=== PATIENT | female | born 1965 | race Caucasian/White ===

== ENCOUNTER 2021-10-08 11:05 | Inpatient (IN) | payer OTHER, SELFPAY ==
[2021-10-08] VITALS (9 sets, daily range): BP systolic 151–200; BP diastolic 70–85; PULSE 71–83; RESP 16–18; TEMP 36.1–36.7; O2SAT 97–100; BMI 30.4
--- NOTE | ~2021-10-08 | US_ITS ---
EXAMINATION: US carotid duplex BI DATE: 10/08/2021 17:33 INDICATION: Right hemiparesis. TECHNIQUE: Grayscale, color Doppler, and pulsed Doppler images of the cervical carotid arteries were obtained. The degree of vessel stenosis is placed in one of the following categories: normal, <50%, 5 0-69%, >=70% but less than near-occlusion, near-occlusion, or total occlusion. Note that percent sten osis relative to normal distal artery lumen diameter is indirectly measured from velocity measurement s as described by Vladimir, et al. Radiology 2003; 229:340-346. COMPARISON: CTA 10/08/2021 FINDINGS: RIGHT: The right common carotid artery (CCA) peak systolic velocity (PSV) is 73 cm/s. The right internal car otid artery (ICA) PSV is 143 cm/s. The right ICA end-diastolic velocity (EDV) is 45 cm/s. The right I CA/CCA PSV ratio is 2.0. Grayscale and color Doppler images yield an estimate of <50% diameter reduct ion from plaque in the ICA. There is antegrade flow in the right vertebral artery. LEFT: The left CCA PSV is 113 cm/s. The left ICA PSV is 108 cm/s. The left ICA EDV is 21 cm/s. The left ICA /CCA PSV ratio is 1.0. Grayscale and color Doppler images yield an estimate of <50% diameter reductio n from plaque in the ICA. There is antegrade flow in the left vertebral artery. IMPRESSION: 1. <50% stenosis in the right internal carotid artery. 2. <50% stenosis in the left internal carotid artery. Reviewed, dictated and finalized at location A. MANAGER
--- NOTE | ~2021-10-08 | MR_ITS ---
EXAMINATION: MR brain/brain stem wo/w con EXAM DATE: 10/09/2021 15:23 INDICATION: R sided weakness. TECHNIQUE: Magnetic resonance imaging (MRI) of the brain/brain stem obtained without contrast. Sagit gigi T1, axial diffusion, gradient echo (T2*), T1, T2, FLAIR sequences obtained. Patient was then inj ected with 18 cc intravenous Multihance contrast. Axial and coronal postcontrast T1 weighted sequence s obtained. Correlation is made to CTA brain carotid from yesterday. FINDINGS: There is small left thalamic acute lacunar infarction. There is mild microangiopathy. There is no acute hemorrhage seen on the T2*, a hemosiderin sensitive sequence. No intraparenchymal brain mass. The ventricles are normal in size. There are no extra-axial collections. Flow voids are seen in the cerebral arteries on the T2-weighted sequences consistent with their expected patency. The o rbits are unremarkable. Soft tissue is unremarkable. There are no areas of abnormal enhancement on the postcontrast images. IMPRESSION: Acute left thalamic lacunar infarction. Mild microangiopathy. Reviewed, dictated and finalized at location B. CUTTER
--- NOTE | ~2021-10-08 | CT_ITS ---
EXAMINATION: CTA brain carotid EXAM DATE: 10/08/2021 11:56 INDICATION: R sided hemiparesis and paresthesia yesterday morning TECHNIQUE: Noncontrast head CT. Spiral CTA of the carotid arteries was performed with intravenous i njection 100 cc of Omnipaque 350. Axial, coronal, sagittal reformatted images reviewed. Additional r eformatted images created on dedicated 3-D workstation. NASCET comparable standard used to assess th e degree of arterial stenosis. Spiral CT angiogram cerebral arteries performed with the same intrave nous injection of contrast. Source images of the brain CTA transferred to dedicated workstation for 3 -D rotational image creation. Coronal, sagittal maximum intensity pixel images also reviewed. The d ose-length product (DLP) for this examination was 1830.27 mGy-cm. The exposure was tailored accordi ng to patient size, and iterative reconstruction (ASIR) was used as additional dose reduction techniq ue. There is no prior study for comparison. FINDINGS: There is mild to moderate right carotid, mild left carotid bulb atherosclerosis with 40% st enosis of the right carotid bulb, 0% stenosis on the left. Vertebral arteries are codominant. There i s no carotid or vertebral basilar arterial dissection or fibromuscular dysplasia. There are no cerebr al artery aneurysms. There is symmetric cerebral artery arborization. The sagittal, transverse and si gmoid sinuses enhance normally, no venous sinus thrombosis. Internal cerebral veins also enhance norm ally. There is no acute intraparenchymal hemorrhage. No evidence of intraparenchymal brain mass lesion. N o evidence of acute infarction. There is mild periventricular and subcortical hypodensity, nonspecifi c but probably related to small vessel ischemic disease. There is no mass effect or midline shift. There is no obstructive hydrocephalus suspected. There are no extra-axial collections. There is 8mm calcification overlying right frontal lobe, most likely small calcified meningioma requiring no furt her follow-up. Incidental Findings: Mild to moderate cervical spondylosis. IMPRESSION: 1. No acute carotid or intracranial findings. 2. Right carotid bulb 40% stenosis, left carotid bulb 0% stenosis. 3. Mild microangiopathy. Reviewed, dictated and finalized at location B. REACTIVATOR OPERATOR
--- NOTE | ~2021-10-08 | XR_ITS ---
XR chest 1V portable DATE: 10/08/2021 11:39 INDICATION: Right sided weakness TECHNIQUE: Portable upright AP chest on 10/08/2021 at 1131 hours COMPARISON: 12/17/2018 MRI chest 10/15/2018 PA chest and left RIBS FINDINGS: Normal heart size. No hilar or mediastinal enlargement. The lungs are normally inflated and clear of infiltrate or consolidation. No pleural effusion or pulmonary vascular congestion or pneumo thorax. Included skeletal structures are unremarkable. Status post cholecystectomy IMPRESSION: No active cardiopulmonary disease Reviewed, dictated and finalized at location A. CTURAL BIOLOGIST
--- NOTE | ~2021-10-08 | CT_ITS ---
EXAMINATION: CTA brain carotid, CT brain wo con DATE: 10/09/2021 17:54 (accession [id number]), 10/09/2021 17:53 (accession [id number]) INDICATION: Stroke symptoms, acute left thalamic lacunar infarct on MRI from today TECHNIQUE: Computed tomographic angiography (CTA) of the head was performed without and with 100 mL O mnipaque-350 intravenous contrast. CTA of the neck was performed with intravenous contrast. The dose- length product was 1154.20 (accession [id number]), 681.00 (accession [id number]) mGy-cm. Maxi mum intensity projection and volume rendered 3D-reconstructions were created by the technologist on a separate workstation. Automated exposure control and iterative reconstruction technique were employe d. COMPARISON: MRI from today and CTA brain carotid from yesterday FINDINGS: HEAD CTA: There is no acute intraparenchymal hemorrhage. No evidence of mass lesion. No evidence of a cute infarction. The left thalamic infarct demonstrated on today's MRI is not yet evident on CT. Ther e is mild periventricular and subcortical hypodensity probably related to small vessel ischemic disea se. There is mild prominence of the sulci and ventricles related to cerebral atrophy. Intracranial ca lcified cerebral atherosclerosis is noted. There are no extra-axial collections. There is no mass eff ect or midline shift. The orbits and soft tissues are unremarkable. The visualized sinuses and mastoi d air cells are well aerated. There is no significant stenosis of the basilar artery or posterior cerebral arteries. There is no si gnificant stenosis of the intracranial internal carotid arteries or the anterior or middle cerebral a rteries. The anterior communicating artery and posterior communicating arteries are normal. There is no aneurysm. NECK CTA: The thyroid gland is unremarkable. The submandibular and parotid glands are symmetric. Ther e is no lymphadenopathy. There are no masses identified. The airway is unremarkable. There is mild ce rvical spondylosis.. The superior mediastinum is unremarkable. There is 40% stenosis of the proximal right internal carotid artery relative to normal distal artery lumen diameter (NASCET criteria). There is 0% stenosis of the proximal left internal carotid artery r elative to normal distal artery lumen diameter. IMPRESSION: 1. No acute intracranial abnormality. Known small left thalamic infarct not yet evident on CT. Normal head CTA. 2. 40% stenosis of the proximal right internal carotid artery relative to normal distal artery lumen diameter (NASCET criteria). 3. 0% stenosis of the proximal left internal carotid artery relative to normal distal artery lumen di ameter. As per stroke protocol, I called these results to the [facility], and discussed with ELIAZAR Oviedo at 1 830 hours on 10/09/2021. Reviewed, dictated and finalized at location F. NICS MANAGER IMPRESSION: 1. No acute intracranial abnormality. Known small left thalamic infarct not yet evident on CT. Normal head CTA. 2. 40% stenosis of the proximal right internal carotid artery relative to ivet l distal artery lumen diameter (NASCET criteria). 3. 0% stenosis of the proximal left internal carotid artery relative to normal distal artery lumen diameter. As per stroke protocol, I called these results to the [facility], and discus sed with ELIAZAR Oviedo at 1830 hours on 10/09/2021.
--- NOTE | ~2021-10-08 | MR_ITS ---
EXAMINATION: MR cervical spine wo/w con EXAM DATE: 10/09/2021 15:23 INDICATION: Neck pain . Acute left thalamic lacunar infarction. TECHNIQUE: Multi-sequential, multiplanar MR images of the cervical spine were obtained without contra st. Axial T2, axial T2 MERGE sequence. Sagittal T1, T2, T2 fat saturation images also obtained. Th ere is no prior study for comparison. FINDINGS: There is mild to moderate disc disease C4-7. The spinal cord signal intensity and intrinsi c morphology is normal. Cervicomedullary junction is normal in appearance. There are no suspicious ma rrow signal abnormalities. The vertebral bodies are aligned in the AP dimension. Paraspinal soft ti ssue is unremarkable. Level by level evaluation: C2-C3: Small central disc protrusion. Uncovertebral joint arthropathy: None. Facet joint arthropathy: Mild bilateral. Neural foraminal stenosis: No stenosis. Central canal stenosis: Minimal. C3-C4: There is a mild diffuse disc bulge. Uncovertebral joint arthropathy: Mild to moderate right, mild left. Facet joint arthropathy: Mild to moderate bilateral. Neural foraminal stenosis: Mild to moderate right, mild left. Central canal stenosis: Minimal. C4-C5: There is a mild diffuse disc bulge. Uncovertebral joint arthropathy: Moderate right, mild left. Facet joint arthropathy: Moderate bilateral. Neural foraminal stenosis: Moderate to severe right, mild to moderate left. Central canal stenosis: Mild. C5-C6: There is a mild to moderate diffuse disc bulge asymmetric to the right, indenting the anterior aspect of cord without cord signal change. Uncovertebral joint arthropathy: Moderate to severe right, moderate left. Facet joint arthropathy: Moderate bilateral. Neural foraminal stenosis: Moderate to severe right, moderate left. Central canal stenosis: Mild to moderate . Central canal measures 6 mm in mid sagittal AP diameter . C6-C7: There is a mild to moderate diffuse disc bulge. Uncovertebral joint arthropathy: Moderate bilateral. Facet joint arthropathy: Mild bilateral. Neural foraminal stenosis: Moderate bilateral, left greater than right. Central canal stenosis: Mild. C7-T1: Disc does not extend beyond the endplate margin. Uncovertebral joint arthropathy: Mild to moderate bilateral. Facet joint arthropathy: Mild to moderate left, mild right. Neural foraminal stenosis: Mild left. Central canal stenosis: No stenosis. IMPRESSION: 1. Overall moderate mid cervical spondylosis as detailed above. 2. Normal cord signal. Reviewed, dictated and finalized at location B. TRICIAN YARD
--- NOTE | 2021-10-08 11:16 | ECG_ITS ---
Measurements Intervals [place] Rate: 80 P: 40 AR: 149 QRS: 2 QRSD: 97 T: 109 QT: 388 QTc: 448 Interpretive Statements SINUS RHYTHM LEFT VENTRICULAR HYPERTROPHY AND ST-T CHANGE CONSIDER INFERIOR INFARCT, AGE INDETERMINATE BASELINE ARTIFACT- II, III, AVR, AVF, V1-V6 ABNORMAL ECG Electronically Signed On 10-08-2021 11:40:52 SCIENTIFIC PHOTOGRAPHER by Johnathan Smalls D.O.
--- NOTE | 2021-10-08 11:17 | ED.WEAKNESS ---
HPI - Weakness General Chief complaint: Weakness Stated complaint: possible stroke symptoms Time Seen by Provider: 10/08/21 11:09 Source: RN notes reviewed History of Present Illness HPI Narrative: Patient presents to emergency department from home for right-sided weakness. Patient states that symptoms began upon awaking on October 06 she noticed some weakness in her right arm and leg with decreased sensation patient states that she has had some difficulty walking as well as associated dizziness and mild nausea. She states that she gone to her PCP as she thought possibly she had had an ear infection as her bowels have been off and have been referred for stroke work-up to the ER. Patient denies any difficulty speaking she denies any fevers or chills chest pain shortness of breath or any other symptoms denies being on any blood thinners patient states she had noticed some mild tenderness in the right trapezius region worse with turning her head to the left Related Data Home Medications Medication Instructions Recorded Confirmed sumatriptan succinate 100 mg tablet 100 mg PO DAILY PRN 07/27/19 10/08/21 semaglutide 0.25 mg SUB-Q WEEKLY 11/01/19 10/08/21 atorvastatin 40 mg PO HS 10/08/21 10/08/21 benazepril 20 mg PO HS 10/08/21 10/08/21 insulin lispro [Humalog U-100 See Rx Instructions .ROUTE .COMPLEX 10/08/21 10/08/21 Insulin] metformin 500 mg PO BID 10/08/21 10/08/21 Allergies Allergy/AdvReac Type Severity Reaction Status Date / Time latex Allergy Severe Hives Verified 10/08/21 15:13 Penicillins Allergy Severe fingers Verified 10/08/21 15:13 peel egg Allergy Intermediate Nausea Verified 10/08/21 15:13 lactose AdvReac Intermediate Nausea Verified 10/08/21 15:13 Review of Systems Review of Systems: Gen.: Denies fevers or chills Eyes: Denies eye pain or visual change ENT: Denies congestion Respiratory: Denies shortness of breath or cough CV: Denies chest pain or palpitations GI: Denies abdominal pain nausea, emesis or diarrhea Musculoskeletal: Denies back pain or muscle pain Neuro: See HPI Skin: Denies rash Except as documented, all other systems reviewed and negative [facility] Past Medical History Medical History (Updated 10/08/21 @ 13:51 by Guerita Luna NP) delivery delivered 2 Chronic migraine Diabetes mellitus type 1, with complication, 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 pump History of PCOS Major depression, recurrent, chronic Shingles Surgical History Surgical History History of appendectomy History of cholecystectomy Family History Family History Grandparent Family history of malignant neoplasm of ovary Other Family history of cardiovascular disease Family history of hypercholesterolemia Social History Social History (Updated 10/08/21 @ 13:53 by Guerita Luna NP) Social History: [employer] Smoking status: Never smoker Alcohol intake: never Substance use: never Substance use type: does not use Sexual Orientation (if Verbalized by the Patient): Straight or Heterosexual Spiritual care concerns: No Exam Narrative: APPEARANCE: No acute distress, nontoxic, resting in bed HEENT: Normocephalic, atraumatic, OMM, TMs clear bilaterally EYES: PERRL, EOMI NECK: Supple, no midline tenderness , no meninges, tenderness to palpation in right trapezius region with pain with turning the head to the left full range of motion of the neck RESPIRATORY: No respiratory distress, clear to auscultation bilaterally with no rhonchi wheezing or rales CARDIOVASCULAR: RRR s murmur bilateral radial pulse 2+ ABDOMINAL: Soft, nontender, nondistended MUSCULOSKELETAL: Moves all extremities. No clubbing, cyanosis or edema. NEURO: A and O ?3, following commands, speech normal, cranial nerves II through XII grossly intact,muscle strength 4 out of 5 in the right upper and low
[2021-10-08 11:25] LABS: Glucose Point of Care 264 mg/dl (65-105)
[2021-10-08 11:34] LABS: Basophils Absolute Auto 0.1 K/mm3 (0.0-0.1); Basophils Percent Auto 0.8 % (0.2-1.2); Eosinophils Absolute Auto 0.3 K/mm3 (0-0.3); Eosinophils Percent Auto 2.7 % (0-4.4); Hematocrit 41.6 % (37.0-47.0); Hemoglobin 14.6 g/dL (12.0-15.0); Immature Granulocyte Absolute 0.12 K/mm3 (0.00-0.031); Lymphocytes Absolute Auto 3.84 K/mm3 (0.9-3.2); Lymphocytes Percent Auto 32.9 % (18.3-44.2); Mean Corpuscular HGB Conc 35.1 g/dl (32-36); Mean Corpuscular Hemoglobin 28.9 pg (26-34); Mean Corpuscular Volume 82.2 fl (80-100); Mean Platelet Volume 8.9 fl (7.4-10.4); Monocytes Absolute Auto 0.8 K/mm3 (0.1-0.6); Monocytes Percent Auto 6.6 % (2.6-8.5); Neutrophils Absolute Auto 6.5 K/mm3 (1.3-6.7); Platelet Count Result 498 k/mm3 (150-375); Red Blood Count 5.06 M/mm3 (4.2-5.4); Red Cell Distribution Width 12.1 % (11.5-14.5); White Blood Count 11.7 K/mm3 (4.5-10.0)
[2021-10-08 11:38] LABS: Estimated CRCL calculation 109 ml/min; Estimated Glomerular Filt Rate > 60
[2021-10-08 11:43] LABS: Alanine Aminotransferase 28 U/L (4-35); Albumin Level 4.8 g/dL (3.5-5.1); Alkaline Phosphatase 145 U/L (38-126); Anion Gap 12 mmol/L (8-16); Aspartate Amino Transferase 27 U/L (14-36); Bilirubin,Total 0.6 mg/dL (0.2-1.3); Blood Urea Nitrogen 17 mg/dL (7-17); Carbon Dioxide 25 mmol/L (22-30); Chloride 101 mmol/L (98-107); Estimated CRCL calculation 109 ml/min; Estimated Glomerular Filt Rate > 60; Glucose 261 mg/dL (65-110); Potassium 4.3 mmol/L (3.4-5.0); Sodium 138 mmol/L (137-145)
[2021-10-08 11:45] LABS: INR 0.9; Prothrombin Time 11.9 Seconds (11.1-14.7)
[2021-10-08 11:46] LABS: Partial Thromboplastin Time 28.2 SECONDS (22.3-36.8)
[2021-10-08 11:55] LABS: Troponin I < 0.012 ng/mL (0.000-0.034)
[2021-10-08] MEDS: ASPIRIN 81 MG CHEWABLE TABLET 324 MG PO (12:18)
--- NOTE | 2021-10-08 13:48 | PM.IMHP ---
H&P: HPI History of Present Illness Date/Time: 10/08/21 13:48 this is a 55-year-old female patient who is an insulin-dependent diabetic. The patient came to the emergency room with complaints of some right-sided weakness. She stated that the symptoms started Wednesday 2 days ago. She noticed the weakness in her right arm and her right leg with decreased sensation. She is also complaining of having some right neck and right shoulder discomfort. She thought that maybe she had an ear infection and was going to see her doctor about that. Her primary care doctor referred her to come to the emergency room. The patient has no difficulty speaking and has no fever chills. She stated that she sometimes takes an aspirin low dose and then other times she forgets to take it. She admits to not always taking her atorvastatin at bedtime. She does have an insulin pump and a DEXA scan and monitors her blood sugars closely. Her white counts mildly elevated 11.7. Platelet count 498. Patient was found to be negative for COVID. Head neck CTA was read as the following 1. No acute carotid or intracranial findings. 2. Right carotid bulb 40% stenosis, left carotid bulb 0% stenosis. 3. Mild microangiopathy. Chest x-ray was read as no acute cardiopulmonary disease. Neurology has been consulted. The patient is being admitted to observation status on 10/08/2021. Chief Complaint: Right upper lower extremity weakness. Review of Systems Review of Systems: All systems reviewed & are unremarkable except as noted in HPI and below Constitutional: Constitutional: Reports as per HPI and Reports no additional constitutional complaints Eyes: Eyes: Reports as per HPI and Reports no additional eye complaints ENT: Reports system reviewed and no additional complaints, except as documented and Reports Normal hearing present Cardiovascular: Cardiovascular: Reports no additional cardiovascular complaints Respiratory: Respiratory: Reports no additional respiratory complaints and Reports no additional respiratory complaints Gastrointestinal: Gastrointestinal: Reports as per HPI and Reports no additional gastrointestinal complaints Musculoskeletal: Musculoskeletal: Reports no additional musculoskeletal complaints Integumentary/Breasts: Skin/Breast: Reports system reviewed and no additional complaints, except as docu and Reports as per HPI Neurologic: Reports system reviewed and no additional complaints, except as documented, Reports as per HPI and Reports Normal hearing present Psychiatric: Psychiatric: Reports no additional psychiatric complaints and Reports as per HPI Endocrine: Endocrine: Reports no additional endocrine complaints Hematologic/Lymphatic: Hematologic/Lymphatic: Reports no additional hematologic/lymphatic complaints Allergic/Immunologic: Allergic/Immunologic: Reports no additional allergic/immunologic complaints PMFSH Past Medical History Medical History (Updated 10/08/21 @ 13:51 by Guerita Luna NP) delivery delivered 2 Chronic migraine Diabetes mellitus type 1, with complication, on custodial insulin pump History of PCOS Major depression, recurrent, chronic Shingles Surgical History Surgical History (Updated 10/08/21 @ 16:21 by Guerita Luna NP) History of appendectomy History of section, classical X2 History of cholecystectomy Family History Family History Grandparent Family history of malignant neoplasm of ovary Other Family history of cardiovascular disease Family history of hypercholesterolemia Social History Social History (Updated 10/08/21 @ 16:23 by Guerita Luna NP) Social History: The patient has 3 children. She is and her is a durable power disability attorney for healthcare. 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 Patient is a lifelong nonsmoker. She does not use any marijuana or illicit drugs. She occas
[2021-10-08 14:01] LABS: SARS-CoV-2 RNA PCR Negative
--- NOTE | 2021-10-08 14:34 | ADMGEN ---
This patient, Sondra López, was admitted to Medical Room 348-01. Patient/family oriented to hospital policies and general routines including ID bracelet, bed and alarms, visiting hours, pain management, procedures, bathroom and other care routines, personal items, smoking policy, room service/diet, and visiting hours. Information on how to activate the Rapid Response Team has been discussed. Patient/Family are encouraged to report perceived risks to care and to ask questions if they do not understand what they are told or what they should do.
[2021-10-08 16:19] LABS: Glucose Point of Care 160 mg/dl (65-105)
[2021-10-08 16:42] LABS: Troponin I < 0.012 ng/mL (0.000-0.034)
[2021-10-08] MEDS: metFORMIN HCL XR 500 MG TAB.SR.24H PO (17:44)
[2021-10-08] MEDS: ATORVASTATIN 40 MG TABLET PO (20:26)
[2021-10-08] MEDS: lisinopriL 20 MG TABLET PO (20:27)
[2021-10-08 20:36] LABS: Troponin I < 0.012 ng/mL (0.000-0.034)
[2021-10-08 20:45] LABS: Glucose Point of Care 237 mg/dl (65-105)
[2021-10-08] MEDS: traMADol HCL (*CRX) 25 MG TABLET PO (22:58)
[2021-10-09] VITALS (12 sets, daily range): BP systolic 100–179; BP diastolic 44–82; PULSE 66–99; RESP 16–18; TEMP 36.2–36.8; O2SAT 100
--- NOTE | 2021-10-09 | ECHO_ITS ---
Patient Info Name: Sondra López Age: 55 years : 1965 Gender: Female Ht: 68 in Wt: 200 lbs BSA: 2.11 m2 HR: 73 bpm BP: 126 / 73 mmHg Heart Rhythm: Sinus Rhythm Technical Quality: Good Exam Date: 10/09/2021 4:32 PM Exam Location: [facility] Patient Status: Outpatient Admit Date: 10/08/2021 Staff Ordering Physician: Guerita Luna NP Embedded Software Developer: Uyen Matute RDCS Attending Provider: Shailesh rCuz MD Referring Physician: Cheryl SCHWARTZ; Exam Type: CA echo doppler w bubble study Study Info Indications - POSSIBLE STROKE Complete two-dimensional, color flow and Doppler transthoracic echocardiogram is performed with agitated saline. Summary 1. Left ventricular chamber dimension is mildly enlarged. 2. Left ventricular systolic function is hyperdynamic, estimated at >70%. 3. There is moderately increased left ventricular wall thickness. 4. The left ventricular diastolic function is grade I diastolic dysfunction. 5. Left atrial chamber dimension is mildly enlarged. 6. There is mild tricuspid valve regurgitation. 7. Mild pulmonary hypertension, estimated pulmonary arterial systolic pressure is 37 mmHg. 8. There is mild pulmonic regurgitation. 9. Intact interatrial septum visualized by color flow and agitated saline imaging. Left Ventricle Left ventricular chamber dimension is mildly enlarged. Left ventricular systolic function is hyperdynamic, estimated at >70%. There is moderately increased left ventricular wall thickness. The left ventricular diastolic function is grade I diastolic dysfunction. Right Ventricle Right ventricular chamber dimension is normal. Right ventricular systolic function is normal. Left Atria Left atrial chamber dimension is mildly enlarged. Right Atria Right atrial chamber dimension is normal. Atrial Septum Intact interatrial septum visualized by color flow and agitated saline imaging. Aortic Valve The aortic valve is trileaflet. There is no aortic valve sclerosis. There is no aortic valve stenosis. There is trace aortic valve regurgitation. Pulmonic Valve The pulmonic valve is normal. There is no pulmonic valve stenosis. There is mild pulmonic regurgitation. Mitral Valve The mitral valve has normal leaflets. There is no mitral valve stenosis. There is trace mitral valve regurgitation. Tricuspid Valve The tricuspid valve leaflets are normal. There is no significant tricuspid valve stenosis. There is mild tricuspid valve regurgitation. Mild pulmonary hypertension, estimated pulmonary arterial systolic pressure is 37 mmHg. Pericardium/Pleural The pericardium appears normal. There is trivial pericardial effusion. Inferior Vena Cava Normal inferior vena cava with >50% collapse upon inspiration consistent with normal right atrial pressure, 10 mmHg. Aorta The aortic root size at the sinus of Valsalva is normal. Left Ventricular Outflow Tract Name Value Normal LVOT 2D LVOT Diameter 2.0 cm LVOT Doppler LVOT Peak Gradient 5 mmHg LVOT Mean Gradient 4 mmHg
[2021-10-09 06:44] LABS: Basophils Absolute Auto 0.1 K/mm3 (0.0-0.1); Basophils Percent Auto 0.9 % (0.2-1.2); Eosinophils Absolute Auto 0.5 K/mm3 (0-0.3); Eosinophils Percent Auto 4.5 % (0-4.4); Hematocrit 40.8 % (37.0-47.0); Hemoglobin 13.6 g/dL (12.0-15.0); Immature Granulocyte Absolute 0.16 K/mm3 (0.00-0.031); Immature Granulocyte Percent A 1.5 % (0-0.5); Lymphocytes Absolute Auto 3.32 K/mm3 (0.9-3.2); Lymphocytes Percent Auto 31.9 % (18.3-44.2); Mean Corpuscular HGB Conc 33.3 g/dl (32-36); Mean Corpuscular Hemoglobin 28.6 pg (26-34); Mean Corpuscular Volume 85.9 fl (80-100); Mean Platelet Volume 9.1 fl (7.4-10.4); Monocytes Absolute Auto 0.8 K/mm3 (0.1-0.6); Monocytes Percent Auto 7.9 % (2.6-8.5); Neutrophils Absolute Auto 5.6 K/mm3 (1.3-6.7); Neutrophils Percent Auto 53.3 % (45.5-73.1); Platelet Count Result 422 k/mm3 (150-375); Red Blood Count 4.75 M/mm3 (4.2-5.4); Red Cell Distribution Width 12.3 % (11.5-14.5); White Blood Count 10.4 K/mm3 (4.5-10.0)
[2021-10-09 07:03] LABS: Anion Gap 9 mmol/L (8-16); Blood Urea Nitrogen 14 mg/dL (7-17); CRP 0.8 mg/dL (<1.0); Calcium 9.2 mg/dL (8.4-10.2); Carbon Dioxide 25 mmol/L (22-30); Chloride 103 mmol/L (98-107); Estimated CRCL calculation 109 ml/min; Estimated Glomerular Filt Rate > 60; Glucose 181 mg/dL (65-110); Magnesium 1.8 mg/dL (1.6-2.3); Sodium 137 mmol/L (137-145)
[2021-10-09 07:31] LABS: Hemoglobin A1C 8.6 % (<5.7)
[2021-10-09 08:02] LABS: Glucose Point of Care 157 mg/dl (65-105)
[2021-10-09] MEDS: metFORMIN HCL XR 500 MG TAB.SR.24H PO ×2 (08:20→17:00)
[2021-10-09] MEDS: ASPIRIN 325 MG TABLET PO (08:20)
[2021-10-09] MEDS: MONTELUKAST SODIUM 10 MG TABLET PO (08:21)
[2021-10-09 11:29] LABS: Glucose Point of Care 191 mg/dl (65-105)
--- NOTE | 2021-10-09 11:58 | WPDNEURCNPN ---
Assessment and Plan Additional Plan 1 Known diabetic 2. TIA 3. Further recommendations when the workup is completed Consult date: 10/09/21 HPI: Sondra López is a 55 year old female admitted to the hospital for the complaints of right-sided weakness of 48 hours duration involving the right upper extremity and right lower extremity with sensory deficit as well in addition to ongoing complaints of right upper cervical and right shoulder discomfort recently she has been treated for the possible ear infection she is known to be insulin pump dependent diabetic and evaluation up until now is revealed her to have CTA with no acute carotid or intracranial findings and subtle micro angiopathy. As mentioned before known to be a type 1 diabetic, recurrent chronic major depression, chronic migraines, never smoker or drinker, and has been taking sumatriptan 100 mg tablet on p.r.n. 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 Patient is a lifelong nonsmoker. She does not use any marijuana or illicit drugs. She occasionally drinks alcohol but on rare occasion. Code status full code Smoking status: Never smoker Alcohol intake: never Substance use: never Substance use type: does not use Sexual Orientation (if Verbalized by the Patient): Straight or Heterosexual Spiritual care concerns: No Meds Home Medications and Allergies Home Medications Medication Instructions Recorded Confirmed Type sumatriptan succinate 100 mg tablet 100 mg PO DAILY PRN 07/27/19 10/08/21 History semaglutide 0.25 mg SUB-Q WEEKLY 11/01/19 10/08/21 History montelukast 10 mg tablet 10 mg PO DAILY 90 Days #90 tablet 10/23/20 10/08/21 Rx atorvastatin 40 mg PO HS 10/08/21 10/08/21 History benazepril 20 mg PO HS 10/08/21 10/08/21 History insulin lispro [Humalog U-100 See Rx Instructions .ROUTE .COMPLEX 10/08/21 10/08/21 History Insulin] metformin 500 mg PO BID 10/08/21 10/08/21 History Allergies Allergy/AdvReac Type Severity Reaction Status Date / Time latex Allergy Severe Hives Verified 10/08/21 15:13 Penicillins Allergy Severe fingers Verified 10/08/21 15:13 peel egg Allergy Intermediate Nausea Verified 10/08/21 15:13 lactose AdvReac Intermediate Nausea Verified 10/08/21 15:13 Vital Signs Vital Signs - 24 hr 10/08/21 12:14 10/08/21 14:14 10/08/21 14:54 Temperature 36.1 C L Pulse Rate 77 74 71 Respiratory Rate 16 18 16 Blood Pressure 163/85 H 182/77 H 188/70 H Pulse Oximetry 97 98 100 10/08/21 16:00 10/08/21 19:50 10/08/21 20:00 Temperature 36.6 C Pulse Rate 82 77 75 Respiratory Rate 18 Blood Pressure 151/77 H Pulse Oximetry 98 10/08/21 20:18 10/09/21 00:05 10/09/21 04:04 Temperature Pulse Rate 76 70 67 Respiratory Rate 18 Blood Pressure Pulse Oximetry 98 10/09/21 04:24 Temperature 36.4 C Pulse Rate 73 Respiratory Rate 18 Blood Pressure 126/73 Pulse Oximetry 100 Exam Na
[2021-10-09 14:03] LABS: Glucose Point of Care 157 mg/dl (65-105)
--- NOTE | 2021-10-09 16:04 | PM.DS ---
DS: Admitting Diagnosis Discharge Date 10/09/21 815 Admitting Diagnosis Acute CVA DS: Discharge Diagnosis Discharge Diagnosis (1) Acute right-sided weakness: Code(s): R53.1 - Weakness Status: Acute Assessment and Plan: Neurology consult was greatly be appreciated. MRI ,an echo follow-up with bubble study, carotid ultrasound. Continue with aspirin. PT and OT. 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 But the patient stated that she is able to monitor her own blood sugars with her DEXA come. She will be able to manage her own diabetes with the insulin pump (3) Major depression, recurrent, chronic: Code(s): F33.9 - Major depressive disorder, recurrent, unspecified Status: Chronic Assessment and Plan: Continue with patient's home medication. (4) Chronic migraine: Status: Chronic Assessment and Plan: Continue with home medication. (5) Essential hypertension: Code(s): I10 - Essential (primary) hypertension Status: Chronic Assessment and Plan: Continue with benazepril (6) Diabetic gastroparesis associated with type 1 diabetes mellitus: Code(s): E10.43 - Type 1 diabetes mellitus with diabetic autonomic (poly)neuropathy; K31.84 - Gastroparesis Status: Acute Assessment and Plan: Continue with home medication. DS: Summary Hospital Course Hospital Course: Patient is a 55-year-old female with a past medical history of hypertension, diabetes, and depression who presented to the ED with right-sided weakness. She stated the symptoms started about 2 days ago. She noticed in the right arm and leg when she tried to walk or drive her car. She did was just treated for an ear infection had antibiotics however when she went for follow-up due to the dizziness and the right-sided deficit she was found to have her ear infection cleared up. Head and neck CT showed no acute carotid or intracranial findings with a 40% right-sided stenosis in its 0% stenosis on the left. Carotid Dopplers were performed and showed less than 50% stenosis bilaterally. MRI showed acute left thalamus limit occur infarct.cervical spine MRI showed overall moderate mild cervical spondylolysis and normal cord signal. Neurology was consulted. Neurology has recommended discharge and stated the patient needs to be on Plavix for 6 weeks, aspirin long-term and she is currently artery on the atorvastatin. Patient is to follow-up with neurology in 6-8 weeks. Patient also states she is not always compliant with medications explained her how important is to be compliant. Patient is also noted to be hypertensive and hydralazine was given IV plus hydrochlorothiazide was started as well. She denies chest pain, shortness of breath, nausea, vomiting, diarrhea, constipation, sweats, fevers, chills. Status at Discharge Functional status at discharge: independent ambulation Overall status at discharge: patient is progressing back to baseline Time Spent with Patient Time attestation: Total time spent providing and/or coordinating discharge services: 53 minutes Time spent: Greater than 30 minutes Specific discharge activities: Diagnostic testing, chart review, developing a treatment plan, education, care coordination documentation, physical exam, result review Exam Const: General: cooperative, healthy appearing, comfortable, no acute distress, well developed, alert, awake and Physically active Nutritional Appearance: average body habitus and well nourished Orientation/consciousness: oriented to person, oriented to place, oriented to time and patient oriented x3 Limitations: no limitations HENMT: Head: normal to inspection, No palpable skull fracture present, normocepha
[2021-10-09] MEDS: hydrALAZINE HCL 20 MG/ML VIAL IV PUSH (16:55)
[2021-10-09 16:56] LABS: Glucose Point of Care 210 mg/dl (65-105)
[2021-10-09] MEDS: hydroCHLOROthiazide 12.5 MG CAPSULE PO (16:59)
--- NOTE | 2021-10-09 17:14 | ECG_ITS ---
Measurements Intervals Stacy Rate: 59 P: 39 PA: 143 QRS: 19 QRSD: 102 T: 57 QT: 486 QTc: 482 Interpretive Statements SINUS BRADYCARDIA WITH SINUS ARRHYTHMIA BORDERLINE ST-T WAVE ABNORMALITY- HIGH LATERAL LEADS BASELINE WANDER- I, II, III, AVL, V1, V3-V6 BORDERLINE ECG Electronically Signed On 10-10-2021 7:51:59 [employer] BACK TENDER by Johnathan Smalls D.O.
--- NOTE | 2021-10-09 17:37 | PM.IMPN ---
Progress Note: A&P Assessment and Plan (1) Acute right-sided weakness: Code(s): R53.1 - Weakness Status: Acute Assessment and Plan: Right-sided deficits arm and leg Neurology consult was greatly be appreciated. MRI found an acute left Thalmic stroke echo follow-up with bubble study performed awaiting read carotid ultrasound less than 50s% stenosis bilaterally Continue with aspirin add Plavix PT and OT. Recurrent event with an NIH of 16 repeat an NIH 35 minutes later 0 (2) Acute CVA (cerebrovascular accident): Code(s): I63.9 - Cerebral infarction, unspecified Status: Acute Assessment and Plan: See above (3) Diabetes mellitus type 1, with complication, on retirement insulin pump: Code(s): E10.8 - Type 1 diabetes mellitus with unspecified complications; Z96.41 - Presence of insulin pump (external) (internal) Status: Acute Assessment and Plan: Accu-Cheks AC and HS. she is able to monitor her own blood sugars with her DEXA come She will be able to manage her own diabetes with the insulin pump Insulin sliding scale (4) Major depression, recurrent, chronic: Code(s): F33.9 - Major depressive disorder, recurrent, unspecified Status: Chronic Assessment and Plan: Continue with patient's home medication. (5) Chronic migraine: Status: Chronic Assessment and Plan: Continue with home medication. (6) Essential hypertension: Code(s): I10 - Essential (primary) hypertension Status: Chronic Assessment and Plan: Continue with benazepril (7) Diabetic gastroparesis associated with type 1 diabetes mellitus: Code(s): E10.43 - Type 1 diabetes mellitus with diabetic autonomic (poly)neuropathy; K31.84 - Gastroparesis Status: Acute Assessment and Plan: Continue with home medication. Time Spent With Patient Time with patient: Greater than 35 minutes Subjective Date/time seen: 10/09/21 17:37 Interval history: Date/Time: 10/08/21 13:48 This is a 55-year-old female patient who is an insulin-dependent diabetic. The patient came to the emergency room with complaints of some right-sided weakness. She stated that the symptoms started Wednesday 2 days ago. She noticed the weakness in her right arm and her right leg with decreased sensation. She is also complaining of having some right neck and right shoulder discomfort. She thought that maybe she had an ear infection and was going to see her doctor about that. Her primary care doctor referred her to come to the emergency room. The patient has no difficulty speaking and has no fever chills. She stated that she sometimes takes an aspirin low dose and then other times she forgets to take it. She admits to not always taking her atorvastatin at bedtime. She does have an insulin pump and a DEXA scan and monitors her blood sugars closely. Her white counts mildly elevated 11.7. Platelet count 498. Patient was found to be negative for COVID. Date/Time 10/09/21 0815 Patient stated that she was doing okay. Patient stated she felt better and she was able to move her right hand and leg better than she has. Patient denies any visual defect. Patient does say that she is noncompliant with medications sometimes just good she forgets to take her meds. At 1710 rapid response was called patient was exhibiting stroke-like symptoms with an NIH score of 16. Symptoms included right-sided deficit both arm and leg slurred speech inability to smile or follow commands. CT was performed and patient is better now and has an NIH score of 0 however MRI did show that patient did have an acute infarct. Carotids are negative for stenosis. Blood pressure is elevated at 180s to 200s. Patient denies chest pain, nausea, vomiting, diarrhea, constipation. Through the episode of the acute stroke patient was diaphoretic and stated that she was having a funny feeling in her chest. EKG did not e
[2021-10-09 17:58] LABS: Troponin I < 0.012 ng/mL (0.000-0.034)
[2021-10-09 18:37] LABS: Glucose Point of Care 208 mg/dl (65-105)
[2021-10-09] MEDS: SODIUM CHLORIDE 0.9% IV 500 ML IV CONT (18:44)
[2021-10-09] MEDS: CLOPIDOGREL BISULFATE 75 MG TABLET PO (18:51)
[2021-10-09] MEDS: INSULIN ASPART (*BKC) 100 UNITS/ML SUB-Q ×2 (18:52→22:25)
[2021-10-09 19:00] LABS: Glucose Point of Care 214 mg/dl (65-105)
[2021-10-09] MEDS: lisinopriL 20 MG TABLET PO (21:09)
[2021-10-09] MEDS: ATORVASTATIN 40 MG TABLET PO (21:09)
[2021-10-09 21:21] LABS: Troponin I < 0.012 ng/mL (0.000-0.034)
[2021-10-09 21:39] LABS: Glucose Point of Care 222 mg/dl (65-105)
[2021-10-09 23:33] LABS: Troponin I < 0.012 ng/mL (0.000-0.034)
[2021-10-10] VITALS (13 sets, daily range): BP systolic 119–146; BP diastolic 57–62; PULSE 74–95; RESP 18–20; TEMP 36.1–36.4; O2SAT 94–100
[2021-10-10 07:56] LABS: Glucose Point of Care 249 mg/dl (65-105)
[2021-10-10] MEDS: metFORMIN HCL XR 500 MG TAB.SR.24H PO (08:10)
[2021-10-10] MEDS: hydroCHLOROthiazide 12.5 MG CAPSULE PO (08:10)
[2021-10-10] MEDS: CLOPIDOGREL BISULFATE 75 MG TABLET PO (08:10)
[2021-10-10] MEDS: ASPIRIN 325 MG TABLET PO (08:10)
[2021-10-10] MEDS: MONTELUKAST SODIUM 10 MG TABLET PO (08:10)
[2021-10-10] MEDS: INSULIN ASPART (*BKC) 100 UNITS/ML SUB-Q ×3 (08:14→17:24)
--- NOTE | 2021-10-10 10:11 | PM.IMPN ---
Progress Note: A&P Assessment and Plan (1) Acute right-sided weakness: Code(s): R53.1 - Weakness Status: Acute Assessment and Plan: Right-sided deficits arm and leg Neurology consulted, recommendations appreciated MRI found an acute left Thalmic stroke ECHO-->grade I diastolic dysfunction; EF >70%, mild tricuspid valve regurgitation; mild pulmonary hypertension, estimated pulmonary arterial systolic pressure is 37 mmHg; mild pulmonic regurgitation Carotid ultrasound less than 50s% stenosis bilaterally Continue with aspirin add Plavix PT and OT (2) Acute CVA (cerebrovascular accident): Code(s): I63.9 - Cerebral infarction, unspecified Status: Acute Assessment and Plan: Treatment as above (3) Major depression, recurrent, chronic: Code(s): F33.9 - Major depressive disorder, recurrent, unspecified Status: Chronic Assessment and Plan: Continue with patient's home medication (4) Chronic migraine: Status: Chronic Assessment and Plan: Continue with home medication (5) Essential hypertension: Code(s): I10 - Essential (primary) hypertension Status: Chronic Assessment and Plan: Continue with benazepril D/c'd HTCZ Added coreg Monitor (6) CHF (congestive heart failure), NYHA class I: Code(s): I50.9 - Heart failure, unspecified Status: Acute Assessment and Plan: ECHO-->grade I diastolic dysfunction; EF >70%, mild tricuspid valve regurgitation; mild pulmonary hypertension, estimated pulmonary arterial systolic pressure is 37 mmHg; mild pulmonic regurgitation Will check proBNP Continue with ASA, BB, ACEI Monitor F/u with PCP, may require f/u with cardiology o/p (7) IDDM (insulin dependent diabetes mellitus): Status: Acute Assessment and Plan: Accu-Cheks AC and HS. Hgb A1c 8.6 she is able to monitor her own blood sugars with her DEXA come She will be able to manage her own diabetes with the insulin pump Insulin sliding scale Subjective Date/time seen: 10/10/21 10:11 Interval history: Date/Time: 10/08/21 13:48 This is a 55-year-old female patient who is an insulin-dependent diabetic. The patient came to the emergency room with complaints of some right-sided weakness. She stated that the symptoms started Wednesday 2 days ago. She noticed the weakness in her right arm and her right leg with decreased sensation. She is also complaining of having some right neck and right shoulder discomfort. She thought that maybe she had an ear infection and was going to see her doctor about that. Her primary care doctor referred her to come to the emergency room. The patient has no difficulty speaking and has no fever chills. She stated that she sometimes takes an aspirin low dose and then other times she forgets to take it. She admits to not always taking her atorvastatin at bedtime. She does have an insulin pump and a DEXA scan and monitors her blood sugars closely. Her white counts mildly elevated 11.7. Platelet count 498. Patient was found to be negative for COVID. Date/Time 10/09/21 0815 Patient stated that she was doing okay. Patient stated she felt better and she was able to move her right hand and leg better than she has. Patient denies any visual defect. Patient does say that she is noncompliant with medications sometimes just good she forgets to take her meds. At 1710 rapid response was called patient was exhibiting stroke-like symptoms with an NIH score of 16. Symptoms included right-sided deficit both arm and leg slurred speech inability to smile or follow commands. CT was performed and patient is better now and has an NIH score of 0 however MRI did show that patient did have an acute infarct. Carotids are negative for stenosis. Blood pressure is elevated at 180s to 200s. Patient denies chest pain, nausea, vomiting, diarrhea, constipation. Through the episode of the acute stroke patient was diaphoretic and stated kinsey
[2021-10-10 12:16] LABS: Glucose Point of Care 260 mg/dl (65-105)
--- NOTE | 2021-10-10 12:59 | WPDNEUROPN ---
Progress Note: A&P Additional Plan patient was advised considering the underlying risk factor of diabetes mellitus , she needs to be treated aggressively for the stroke prevention and also is the follow-up for the C5-C6 spinal stenosis as she has been experiencing cervical discomfort with radiation to the shoulder. She can be discharged accordingly with instruction to follow up in the office Time Spent With Patient Time with patient: 15 - 25 minutes Subjective Date/time seen: 10/10/21 12:59 55 years old with diabetes mellitus, abnormal MRI with acute left thalamic lacunar infarct, with MRI of cervical spine documenting C5-C6 mild to moderate diffuse bulge and central canal stenosis with 6mm in mid sagittal AP diameter Review of Systems Review of Systems: All systems reviewed & are unremarkable except as noted in HPI and below Objective Data Vital Signs Vital Signs: Vital Signs - 24 hr 10/09/21 15:34 10/09/21 16:00 10/09/21 17:33 Temperature 36.2 C L Pulse Rate 81 80 66 Respiratory Rate 18 16 Blood Pressure 179/82 H 100/44 L Pulse Oximetry 100 100 10/09/21 18:13 10/09/21 20:04 10/09/21 20:43 Temperature 36.5 C Pulse Rate 85 99 85 Respiratory Rate 18 18 Blood Pressure 156/60 H Pulse Oximetry 100 100 10/09/21 21:15 10/10/21 00:00 10/10/21 00:29 Temperature 36.8 C 36.1 C L Pulse Rate 95 74 92 Respiratory Rate 18 20 Blood Pressure 132/60 146/62 H Pulse Oximetry 100 98 10/10/21 04:04 10/10/21 04:56 10/10/21 08:00 Temperature 36.4 C Pulse Rate 77 94 74 Respiratory Rate 20 Blood Pressure 119/57 L Pulse Oximetry 100 Intake/Output Intake/Output: Intake & Output 10/07/21 10/08/21 10/09/21 10/10/21 23:59 23:59 23:59 23:59 Intake Total 240 1160 770 Output Total 500 1400 500 Balance -260 -240 270 Meds/Results Medications: Active Medications Generic Name Dose Route Start Last Admin Trade Name Freq PRN Reason Stop Dose Admin Aspirin 325 mg 10/09/21 08:00 10/10/21 08:10 Aspirin 325 Mg Tablet PO 325 mg DAILY@0800 SANTOS Administration Atorvastatin Calcium 40 mg 10/08/21 21:00 10/09/21 21:09 Atorvastatin 40 Mg Tablet PO 40 mg HS SANTOS Administration Carvedilol 3.125 mg 10/10/21 21:00 Carvedilol 3.125 Mg Tablet PO Q12HR SANTOS Clopidogrel Bisulfate 75 mg 10/09/21 16:45 10/10/21 08:10 Clopidogrel Bisulfate 75 Mg Tablet PO 75 mg QAM SANTOS Administration Dextrose 12.5 gm 10/08/21 16:32 Dextrose 50% 25 Gm/50 Ml Syringe IV PUSH PRN PRN Hypoglycemia Protocol Glucagon 1 mg 10/08/21 16:32 Glucagon For Inj 1 Mg Vial IM PRN PRN Hypoglycemia Protocol Glucose 15 gm 10/08/21 16:32 Glucose Oral Gel 15 Gm Of Glucse In 37.5 Gm Tube PO PRN PRN Hypoglycemia Protocol Hydrochlorothiazide 12.5 mg 10/09/21 16:10 10/10/21 08:10 Hydrochlorothiazide 12.5 Mg Capsule PO 12.5 mg QAM SANTOS Administration Dextrose 1,000 mls @ 100 mls/hr 10/08/21 16:32 Dextrose 5% 1,000 Ml IVPB PRN PRN Hypoglycemia Protocol Insulin Aspart 2 - 5 units 10/08/21 17:00 10/10/21 12:52 Insulin Aspart (*Bkc) 100 Units/Ml SUB-Q 3 units TIDWM SANTOS Administration Protocol Lisinopril 20 mg 10/08/21 21:00 10/09/21 21:09 Lisinopril 20 Mg Tablet PO 11/07/21 20:59 20 mg HS SANTOS Administration Metformin HCl 500 mg 10/08/21 17:00 10/10/21 08:10 Metformin Hcl Xr 500 Mg Tab.Sr.24h PO 500 mg BID SANTOS Administration Montelukast Sodium 10 mg 10/09/21 09:00 10/10/21 08:10 Montelukast Sodium 10 Mg Tablet PO 10 mg DAILY SANTOS Administration Insulin Lispro [ 0 unit 10/09/21 09:00 10/10/21 08:23 Humalog U-100 XX 11/08/21 08:59 Not Given Insulin] 100 Unit/Ml DAILY SANTOS Solution Home Pump Sumatriptan Succinate 100 mg 10/08/21 16:13 Sumatriptan Succinate 25 Mg Tablet PO DAILY PRN Migraine Tramadol HCl 25 mg 10/08/21 22:48 10/08/21 22:5
--- NOTE | 2021-10-10 13:40 | PC.NURSE ---
Gregoria ballesteros with no IV
[2021-10-10 16:47] LABS: Glucose Point of Care 240 mg/dl (65-105)
[2021-10-10] MEDS: metFORMIN HCL 500 MG TABLET PO (17:25)
[2021-10-10] MEDS: traMADol HCL (*CRX) 25 MG TABLET PO (20:30)
[2021-10-10] MEDS: carvediloL 3.125 MG TABLET PO (20:31)
[2021-10-10] MEDS: lisinopriL 20 MG TABLET PO (20:31)
[2021-10-10] MEDS: ATORVASTATIN 40 MG TABLET PO (20:32)
[2021-10-10 21:51] LABS: Glucose Point of Care 259 mg/dl (65-105)
[2021-10-11 00:05] VITALS: PULSE 81
[2021-10-11 04:05] VITALS: PULSE 69
[2021-10-11 04:23] VITALS: BP 130/64; PULSE 78; RESP 16; TEMP 37.4; O2SAT 98
[2021-10-11 06:48] LABS: Hematocrit 42.4 % (37.0-47.0); Hemoglobin 14.2 g/dL (12.0-15.0); Mean Corpuscular HGB Conc 33.5 g/dl (32-36); Mean Corpuscular Hemoglobin 28.1 pg (26-34); Mean Corpuscular Volume 83.8 fl (80-100); Mean Platelet Volume 9.1 fl (7.4-10.4); Platelet Count Result 448 k/mm3 (150-375); Red Blood Count 5.06 M/mm3 (4.2-5.4); Red Cell Distribution Width 12.4 % (11.5-14.5)
[2021-10-11 06:57] LABS: Anion Gap 11 mmol/L (8-16); Blood Urea Nitrogen 21 mg/dL (7-17); Calcium 9.5 mg/dL (8.4-10.2); Carbon Dioxide 25 mmol/L (22-30); Chloride 98 mmol/L (98-107); Estimated CRCL calculation 83 ml/min; Estimated Glomerular Filt Rate > 60; Glucose 293 mg/dL (65-110); Potassium 4.1 mmol/L (3.4-5.0); Sodium 134 mmol/L (137-145)
[2021-10-11 07:04] LABS: NT Pro B Type Natriuretic Pept 12 pg/mL (5-100)
[2021-10-11 08:00] VITALS: PULSE 82
[2021-10-11 08:05] LABS: Glucose Point of Care 285 mg/dl (65-105)
[2021-10-11] MEDS: INSULIN ASPART (*BKC) 100 UNITS/ML SUB-Q (08:15)
[2021-10-11 08:17] VITALS: PULSE 78
[2021-10-11] MEDS: MONTELUKAST SODIUM 10 MG TABLET PO (08:17)
[2021-10-11] MEDS: metFORMIN HCL 500 MG TABLET PO (08:17)
[2021-10-11] MEDS: carvediloL 3.125 MG TABLET PO (08:17)
[2021-10-11] MEDS: ASPIRIN 325 MG TABLET PO (08:17)
[2021-10-11] MEDS: CLOPIDOGREL BISULFATE 75 MG TABLET PO (08:17)
--- NOTE | 2021-10-11 10:49 | PM.DS ---
DS: Admitting Diagnosis Discharge Date 10/11/2021 Admitting Diagnosis Acute right-sided weakness DS: Discharge Diagnosis Discharge Diagnosis (1) Acute right-sided weakness: Code(s): R53.1 - Weakness Status: Acute Assessment and Plan: Right-sided deficits arm and leg Neurology consulted, recommendations appreciated MRI found an acute left Thalmic stroke ECHO-->grade I diastolic dysfunction; EF >70%, mild tricuspid valve regurgitation; mild pulmonary hypertension, estimated pulmonary arterial systolic pressure is 37 mmHg; mild pulmonic regurgitation Carotid ultrasound less than 50s% stenosis bilaterally Continue with aspirin add Plavix PT and OT (2) Acute CVA (cerebrovascular accident): Code(s): I63.9 - Cerebral infarction, unspecified Status: Acute Assessment and Plan: Treatment as above (3) Major depression, recurrent, chronic: Code(s): F33.9 - Major depressive disorder, recurrent, unspecified Status: Chronic Assessment and Plan: Continue with patient's home medication (4) Chronic migraine: Status: Chronic Assessment and Plan: Continue with home medication (5) Essential hypertension: Code(s): I10 - Essential (primary) hypertension Status: Chronic Assessment and Plan: Continue with benazepril D/c'd HTCZ Added coreg Monitor (6) CHF (congestive heart failure), NYHA class I: Code(s): I50.9 - Heart failure, unspecified Status: Acute Assessment and Plan: ECHO-->grade I diastolic dysfunction; EF >70%, mild tricuspid valve regurgitation; mild pulmonary hypertension, estimated pulmonary arterial systolic pressure is 37 mmHg; mild pulmonic regurgitation Will check proBNP Continue with ASA, BB, ACEI Monitor F/u with PCP, may require f/u with cardiology o/p (7) IDDM (insulin dependent diabetes mellitus): Status: Acute Assessment and Plan: Accu-Cheks AC and HS. Hgb A1c 8.6 she is able to monitor her own blood sugars with her DEXA come She will be able to manage her own diabetes with the insulin pump Insulin sliding scale DS: Summary Hospital Course Hospital Course: Sondra Lopez is a 55-year-old lady with a PMH of IDDM, who presented to the ED with complaints of some right-sided weakness for 2 days. She noticed the weakness in her right arm and her right leg with decreased sensation. She is also complaining of having some right neck and right shoulder discomfort. She thought that maybe she had an ear infection and was going to see her doctor about that. Her primary care doctor referred her to come to the emergency room. The patient had no difficulty speaking. She denied any fever or chills. She is prescribed low dose aspirin, however she forgets to take it sometimes. She admits to not always taking her atorvastatin at bedtime. She does have an insulin pump and a DEXA scan and monitors her blood sugars closely. Preliminary workup showed WBC mildly elevated 11.7. Platelet count 498. Patient was found to be negative for COVID. Head neck CTA showed no acute carotid or intracranial findings. Chest x-ray was read as no acute cardiopulmonary disease. Neurology has been consulted. The patient is being admitted to observation status. The patient is hemodynamically stable and will discharge home. She has been advised to follow up with her PCP within 2 weeks. She will have PT outpatient. Time Spent with Patient Time attestation: Total time spent providing and/or coordinating discharge services: Time spent: Greater than 30 minutes Exam Narrative: General: NAD. HEENT: EOMI. Sclerae anicteric. Neck: Supple. No JVD. Respiratory: Lungs are clear to auscultation bilaterally. Cardiovascular: Regular rate and rhythm with S1-S2. Gastrointestinal: Abdomen is soft, nontender, and nondistended with positive bowel sounds. No guarding or rebound tenderness. Skin: Warm and dry. No rash or lesions on limited ex
== END 2021-10-11 12:45 | disposition home or self-care (01) | DRG 65 ==
LOC: ANHED 12:51 → ANH3MED 14:29
PROVIDERS: Nurse Practitioner; Nurse Practitioner Adult Health; Admitting Provider Internal Medicine; Emergency Provider Emergency Medicine; PCP Family Medicine; Visit Provider Internal Medicine
DX: I63.9 Cerebral infarction, unspecified (principal); G81.91 Hemiplegia, unspecified affecting right dominant side; F33.9 Major depressive disorder, recurrent, unspecified; Z20.822 Contact with and (suspected) exposure to COVID-19; G43.909 Migraine, unspecified, not intractable, without status migrainosus; I11.9 Hypertensive heart disease without heart failure; I51.89 Other ill-defined heart diseases; R29.702 NIHSS score 2; E10.43 Type 1 diabetes mellitus with diabetic autonomic (poly)neuropathy; K31.84 Gastroparesis; Z90.49 Acquired absence of other specified parts of digestive tract
CPT/HCPCS: 36415; 70450; 70496; 70498; 70553; 71045; 72156; 80048; 80053; 82728; 82948; 83036; 83735; 83880; 84443; 84484; 85025; 85027; 85610; 85730; 86140; 93005; 93306; 93880; 96374; 96375; 97110; 97162; 97165; 97530; 97535; 99285; A9270; A9577; C8929; C9803; G0378; J0360; J1815; J7040; Q9957; Q9967; U0003; U0005

== ENCOUNTER 2021-12-18 13:30 | Outpatient (RCR) | payer OTHER, SELFPAY ==
--- NOTE | 2021-10-24 12:01 | PTOPEVAL ---
PHYSICAL THERAPY INITIAL EVALUATION Thank you for referring Sondra López to [facility].? The patient is scheduled to be seen for therapy?2x/week for 4 weeks or until goals are met. Please review, sign, date and return this plan of care ANDREIA. I agree with and certify that the following plan of care is medically necessary. Referring Physician Date Attending Provider: Elise Dorantes MD *PT Outpatient Evaluation Start: 10/24/21 Neurological History Hx Cerebrovascular Accident (CVA) Yes: 10/07/2021 Hx Transient Ischemic Attacks (TIA) Yes: 10/09/2021 Evaluation Information Diagnosis Hemiplegia, affecting right side Onset 10/07/2021 Subjective Information Pt states she had a CVA on Text:As Reported By Patient, then had a TIA on 10/09/ Family 22. Pt states while at work on the 10/07/21 she fell before she knew she was having a stroke, she states she could not feel her leg when she got up from her desk. Pt has has two additional falls without injury while trying to get to the bathroom with assist of family after discharge from the hospital. 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 Pt states she is right handed. Pt states she notices daily she is starting to regain more function. 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
--- NOTE | 2021-11-03 10:44 | OTOPEVAL ---
OCCUPATIONAL THERAPY INITIAL EVALUATION REPORT 11/03/21 Thank you for referring Sondra López to [facility].? The patient is scheduled to be seen for therapy? 2x/week for 4 weeks. Please review, sign, date and return this plan of care ANDREIA. I agree with and certify that the following plan of care is medically necessary. Referring Physician Date Referring Provider: Elise Dorantes MD *OT Outpatient Evaluation Start: 11/03/21 09:30 Outpatient Past Medical History Neurological History Hx Cerebrovascular Accident (CVA) Yes: 10/07/2021 Hx Migraine Yes Hx Seizures Yes: in 6th grade r/t eye injury Hx Transient Ischemic Attacks (TIA) Yes: 10/09/2021 Cardiovascular History Hx Hypercholesterolemia Yes Hx Hypertension Yes Respiratory History Hx Bronchitis Yes Gastrointestinal History Hx Appendectomy Yes: 10th grade Hx Cholecystectomy Yes: 2003 Hx Gastroesophageal Reflux Disease Yes Hx Ulcer Yes Hx Other Gastrointestinal Disorders Yes: slight gastroparesis Genitourinary History Hx Urinary Tract Infection Yes Musculoskeletal History Hx Fractures Yes: right elbow, right foot Hx Other Musculoskeletal Disorders Yes: compression at C4-C5 Hematological History Hx Hematological Disorders No Significant History Endocrine History Hx Diabetes Yes: managed with insulin HEENT History Hx Tonsillectomy Yes Integumentary History Hx Skin Disorders No Significant History Reproductive History Hx Reproductive Disorders No Significant History Psychosocial History Hx Psychiatric Disorders No Significant History Anesthesia History Hx Anesthesia Reactions No Significant History Evaluation Information Problem Diagnosis Hemiplegia, affecting right side Onset 10/07/2021 Subjective Information Pt states she had a CVA on Text:As Reported By Patient, then had a TIA on 10/09/ . Pt states while at work on the 10/07/21 she fell before she knew she was having a stroke, she states she could not feel her leg when she got up from her desk. Pt has has two additional falls without injury while trying to get to the bathroom with assist of family after discharge from the hospital. 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 Pt state
--- NOTE | 2021-11-20 11:14 | PTOPEVAL ---
PHYSICAL THERAPY PROGRESS NOTE Thank you for referring Sondra López to [facility].? The patient is scheduled to be seen for therapy?2x/week for 4 weeks. Please review, sign, date and return this plan of care ANDREIA. I agree with and certify that the following plan of care is medically necessary. Referring Physician Date Attending Provider: Elise Dorantes MD *PT Outpatient Evaluation Start: 10/24/21 Evaluation Information Subjective Information Pt states things are overall Query Text:As Reported By Patient/ going well and she is making Family lots of progress. She reports she still has things that are challenging, and her endurance is still very decreased from her prior. She states her gait is still wonky , and she states she still needs to increase her leg strength and endurance to help with daily tasks. Pain Assessment Right Shoulder(s) Reported Pain Level 9 Bilateral Lower Back Reported Pain Level 6 Lower Extremity Range of Motion Gross Lower Extremity Range of Motion active and passive ROM equal Comments Lower Extremity Muscle Strength Testing Gross Lower Extremity Strength R hip flexion 4-/5 R knee 4+/5 R ankle 4/5 L SLS - 30s R SLS - 6s Balance Assessment Tristan Balance Assessment TRISTAN Balance Evaluation Total Score (/56 48 points) Time Up Go (TUG) Timed Up and Go Test (TUG) (Seconds) 11 Assistive Devices Walker, Wheeled Comments Initially 30 s with FWW Today 13.9s with straight cane and 11.5 s with no AD 5 Time Sit to Stand Time in Seconds 15 5 Time Sit to Stand Comments Initially 28 sec without the Query Text:Normative Data: If Greater use of UEs, today 15s without Than 15 Seconds, 74% Increase Risk for use of UEs Recurrent Falls Dynamic Gait Index Total Score () 18 Gait Assessment Ambulation Assistive Devices Cane Gait Pattern Weaving Gait Other Gait Observations Mild out toeing on the R, equal step length and stride length 2 Minute Walk Total Distance Walked (feet) 375 2 Minute Walk Gait Speed Score (feet/ 3.12 second) 2 Minute Walk Test Comments initially 220ft with wheeled walker = 1.83 ft/sec today 375ft with single point
--- NOTE | 2021-11-25 08:33 | PCOTNOTE ---
Patient called & cancelled scheduled appointment this date due to being sick.
--- NOTE | 2021-11-25 12:28 | PCPTNOTE ---
Patient called & cancelled scheduled appointment this date due to having bronchitis.
--- NOTE | 2021-11-27 10:23 | OTOPEVAL ---
OCCUPATIONAL THERAPY RE-EVALUATION REPORT 11/27/21 Thank you for referring Sondra López to [facility].? The patient is scheduled to be seen for continued occupational therapy? 2x/week for 3 weeks. Please review, sign, date and return this plan of care ANDREIA. I agree with and certify that the following plan of care is medically necessary. Referring Physician Date Referring Provider: Elise Dorantes MD *OT Outpatient Re-valuation Start: 11/03/21 09:30 Diagnosis Hemiplegia, affecting right side Onset 10/07/2021 Subjective Information Patient reports improvements Query Text:As Reported By Patient/ with being able to use her Family right UE to brush her teeth, do her make up, don and tie shoes, showering, writing, typing, and eating. Prior Level of Function Comments Additional Prior Level of Function PSFS: Comments 1. brushing teeth 04/29 2. masara 03/29 3. handwriting 7.5 4. typing 01/27 5. eating 03/29 Pain Assessment Timing of Pain Assessment Timing of Pain Assessment Re-assessment Pain Scale Pain Scale Used Numeric (1 - 10) Self Report Pain Assessment Right Shoulder(s) Reported Pain Level 7 Pain Description Soreness,Tightness,Tingling Pain Frequency Continuous Pain Score Pain Score 7: Self Report Interventions Used Interventions Used By Clinicians Exercise,Rest Upper Extremity Range of Motion Scapular/ Shoulder Range of Motion Right Scapular: Retraction Normal Scapular: Protraction Normal Scapular Downward Rotation Normal Scapular Upward Rotation Normal Shoulder Flexion - Active 160 Shoulder Extension - Active 55 Shoulder Abduction - Active 160 Shoulder Medial Rotation - Active 3 inch discrepancy between Query Text:Reach Behind the Back right and left Shoulder Lateral Rotation - Active Symmetrical to the left. Query Text:Reach Behind the Head Finger Range of Motion Bilateral Reason Not Measured WNL/Left,WNL/Right Thumb Range of Motion Right Reason Not Measured WNL/Right Upper Extremity Muscle Strength Testing Scapular/Shoulder Right Shoulder Flexion Strength 4- Good - Shoulder Extension Strength 4- Good - Shoulder Abduction Strength 4- Good - Shoulder Adduction Strength 4- Good - Shoulder Medial Rotation Strength 4 Good Shoulder Lateral Rotation Strength 4 Good Elbow/Forearm Right Elbow Flexion Strength 4+ Good + Elbow Extension Strength 4+ Good + Forearm Pronation Strength 4+ Good +
--- NOTE | 2021-12-09 10:33 | PCOTNOTE ---
Patient called & cancelled scheduled appointment this date due to a family emergency.
--- NOTE | 2021-12-18 13:19 | OTOPEVAL ---
OCCUPATIONAL THERAPY RE-EVALUATION AND DISCHARGE SUMMARY 12/18/21 Sondra presents today for OT re-evaluation after 7 weeks of outpatient OT. She has made excellent improvements with functional ROM, strength, and coordination. She is very compliant with her home program. Discharging today with patient independent with all materials. Thank you for referring Sondra López to [facility]. Please review, sign, date and return this D/C Note ANDREIA. I agree with and certify that the following plan of care is medically necessary. Referring Physician Date Referring Provider: Elise Dorantes MD Re-Evaluation Information Diagnosis Hemiplegia, affecting right side Onset 10/07/2021 Subjective Information Patient reports improvements Query Text:As Reported By Patient/ with being able to use her Family right UE to brush her teeth, do her make up, don and tie shoes, showering, writing, typing, and eating. She reports that being back at work has been challenging due to her fatigue levels. She tires out after about 4-5 hours at work. She states she notices a decline in her posture and typing. She states she is back in the kitchen and doing some cooking and dishes. Pain Assessment Timing of Pain Assessment Timing of Pain Assessment Re-assessment Pain Scale Pain Scale Used Numeric (1 - 10) Self Report Pain Assessment Right Shoulder(s) Reported Pain Level 5 Pain Radiation Neck Pain Frequency Chronic,Continuous Lowest Pain Intensity 5 Greatest Pain Intensity 10 Pain Score Pain Score 5: Self Report Additional Pain Score Comments Patient has been wearing a posture correcting brace at work. She reports this has helped reduce the upper trap repetitive strain. Interventions Used Interventions Used By Clinicians Education,Exercise Upper Extremity Range of Motion Scapular/ Shoulder Range of Motion Right Shoulder Flexion - Active 180 Shoulder Extension - Active 60 Shoulder Abduction - Active 180 Shoulder Medial Rotation - Active 1.5 inch discrepancy between Query Text:Reach Behind the Back right and left. This improved from a 3 in. difference. Shoulder Lateral Rotation - Active Symmetrical to the left. Query Text:Reach Behind the Head Elbow/Forearm Range of Motion Bilateral Reason Not M
--- NOTE | 2021-12-18 16:27 | PTOPEVAL ---
PHYSICAL THERAPY PROGRESS REPORT AND DISCHARGE NOTE. Thank you for referring Sondra López to [facility].? The patient is to be discharged from skilled physical therapy services at this time. Please review, sign, date and return this plan of care ANDREIA. I agree with and certify that the following plan of care is medically necessary. Referring Physician Date Attending Provider: Elise Dorantes MD Evaluation Information Diagnosis Hemiplegia, affecting right side Onset 10/07/2021 Subjective Information Pt states she is feeling good. Query Text:As Reported By Patient/ She states she is getting Family better everyday, she states it is discouraging knowing she is still not back to her functional level before the stroke. She states it is a journey and that she knows she will continue to get better. Shes states this morning she was able to pick her 7 month old granddaughter off the floor and carry her to her crib without any issues, she states she felt stable with this. Pain Assessment Right Shoulder(s) Reported Pain Level 5 Pain Score Pain Score 5: Self Report Lower Extremity Range of Motion General Lower Extremity Range of Motion WFL/Left,WFL/Right Gross Lower Extremity Range of Motion active and passive ROM equal Comments Lower Extremity Muscle Strength Testing General Lower Extremity Strength WFL/Left Gross Lower Extremity Strength R hip flexion 4+/5 R ankle 4/5 L SLS - 30s R SLS - 12s Knee Strength Right Knee Flexion Strength 4- Good - Knee Extension Strength 4+ Good + Ankle Strength Right Ankle Dorsiflexion Strength 4 Good Ankle Plantarflexion Strength 4 Good Time Up Go (TUG) Timed Up and Go Test (TUG) (Seconds) 9 Assistive Devices Walker, Wheeled Comments Initially 30 s with FWW Re-eval: 13.9s with straight cane and 11.5 s with no AD 12/18/21: 9s with no AD 5 Time Sit to Stand Time in Seconds 14 5 Time Sit to Stand Comments Initially 28 sec without the Query Text:Normative Data: If Greater use of UEs Than 15 Seconds, 74% Increase Risk for Reeval: 15s without use of UEs Recurrent Falls 12/18/21: 14s without UEs Dynamic Gait Index Total Score () Gait
== END 2022-01-02 15:11 | disposition home or self-care (01) ==
LOC: ANHPT 13:30
PROVIDERS: PCP Family Medicine; Visit Provider Family Medicine
DX: I63.9 Cerebral infarction, unspecified (principal); G81.91 Hemiplegia, unspecified affecting right dominant side
CPT/HCPCS: 97110; 97112; 97116; 97140; 97161; 97165; 97530

== ENCOUNTER 2022-09-24 10:12 | Outpatient (CLI) | payer OTHER, SELFPAY ==
--- NOTE | 2022-09-24 11:17 | EST_ITS ---
Patient Info Name: Sondra López Age: 56 years : 1965 Gender: Female Ht: 68 in Wt: 210 lbs BSA: 2.17 m2 HR: 77 bpm BP: 154 / 77 mmHg Heart Rhythm: Sinus Rhythm Exam Date: 09/24/2022 11:27 AM Exam Location: [facility] Stress Patient Status: Outpatient Admit Date: 09/24/2022 Staff Ordering Physician: Johnathan Smalls DO Attending Provider: Johnathan Smalls DO Exercise Technologist: Linda León CT Exercise Physician: Johnathan Smalls DO Exam Type: CA stress test treadmill Study Info Indications R06.00 - Dyspnea, unspecified A treadmill exercise stress test was performed. Summary 1. 1. Negative Nickolas exercise stress test for ischemic ST changes by ECG criteria. However patient achieved only 80% MPHR for age group which reduces sensitivity of the test. 2. 2. Reduced functional capacity, achieving 8 METs of workload. 3. 3. Baseline hypertension with hypertensive response to exercise. 4. 4. Appropriate HR response to exercise. 5. 5. Appropriate HR recovery at 1 minute post exercise. 6. 6. No imaging with stress testing. 7. 7. Patient informed of the above results. Protocol: Nickolas Stress ECG Details Stage: REST Duration (min): 1 min : 4 sec Speed (mph): 0.0 Grade (%): 0 HR (bpm): 77 SBP (mmHg): 154 DBP (mmHg): 77 METS: --- Stage: REST Duration (min): 7 min : 29 sec Speed (mph): 0.0 Grade (%): 0 HR (bpm): 83 SBP (mmHg): 154 DBP (mmHg): 77 METS: --- Stage: STAGE 1 Duration (min): 1 min : 0 sec Speed (mph): 1.7 Grade (%): 10 HR (bpm): 99 SBP (mmHg): 154 DBP (mmHg): 77 METS: --- Stage: STAGE 1 Duration (min): 2 min : 0 sec Speed (mph): 1.7 Grade (%): 10 HR (bpm): 108 SBP (mmHg): 154 DBP (mmHg): 77 METS: --- Stage: STAGE 1 Duration (min): 3 min : 0 sec Speed (mph): 1.7 Grade (%): 10 HR (bpm): 113 SBP (mmHg): 238 DBP (mmHg): 72 METS: --- Stage: STAGE 2 Duration (min): 1 min : 0 sec Speed (mph): 2.5 Grade (%): 12 HR (bpm): 120 SBP (mmHg): 244 DBP (mmHg): 72 METS: --- Stage: STAGE 2 Duration (min): 2 min : 0 sec Speed (mph): 2.5 Grade (%): 12 HR (bpm): 128 SBP (mmHg): 244 DBP (mmHg): 72 METS: --- Stage: STAGE 2 Duration (min): 2 min : 41 sec Speed (mph): 2.5 Grade (%): 12 HR (bpm): 133 SBP (mmHg): 244 DBP (mmHg): 72 METS: --- Stage: RECOVERY Duration (min): 0 min : 18 sec Speed (mph): 0.0 Grade (%): 0 HR (bpm): 132 SBP (mmHg): 244 DBP (mmHg): 72 METS: --- Stage: RECOVERY Duration (min): 1 min : 18 sec Speed (mph): 0.0 Grade (%): 0 HR (bpm): 114 SBP (mmHg): 244 DBP (mmHg): 72 METS: --- Stage: RECOVERY Duration (min): 2 min : 18 sec Speed (mph): 0.0 Grade (%): 0 HR (bpm): 102 SBP (mmHg): 244 DBP (mmHg): 72 METS: --- Stage: RECOVERY Duration (min): 3 min :
== END 2022-09-24 10:13 | disposition home or self-care (01) ==
PROVIDERS: PCP Family Medicine; Visit Provider Internal Medicine Cardiovascular Disease
DX: R06.09 Other forms of dyspnea (principal); I10 Essential (primary) hypertension
CPT/HCPCS: 93017

== ENCOUNTER 2022-10-01 08:27 | Outpatient (CLI) | payer OTHER, SELFPAY ==
--- NOTE | 2022-10-06 15:25 | WPDHOMESLEEP ---
Sleep Study - Home Unattended Date of Study: 10/01/22 Ordering Provider: Johnathan Smalls DO Interpreting Provider: Rossy Abreu DO Home Sleep Study Type: Watch PAT Height: 1.73 m Weight: 95.254 kg Body Mass Index: 31.9 Neck Circumference (inches): 15.5 Haugen: 4 Reason for Sleep Study Paroxysmal ventricular tachycardia Sleep History the patient is a 56-year-old female with diabetes, migraine, depression, paroxysmal ventricular tachycardia, hypertension, dyslipidemia and history of stroke in September 2021 that had a sleep study ordered by her concrete vault maker for evaluation of sleep apnea. The patient denies awakening from sleep short of breath. He constantly awakens at night with heartburn, belching or cough. She occasionally snores but it is rarely loud enough that others complain. She occasionally has trouble sleeping when she has a cold. She denies waking up gasping for air throughout the night. She denies having breathing problems at night observed by herself or others. She frequently sweats excessively at night. She denies having heart palpitations or irregular heartbeats during the night. She occasionally falls asleep during the day. She denies falling asleep while driving. She denies sleep paralysis, cataplexy and hypnagogic / hypnopompic hallucinations. She occasionally has trouble at school or work due to sleepiness. She denies feeling afraid of going to sleep. She occasionally has nightmares and constantly remembers her dreams. She frequently has thoughts racing through her mind. She rarely feels sad or depressed. She frequently has anxiety. She constantly has muscular tension. She occasionally notices parts of her body jerk. She denies kicking during the night. She denies having crawling and aching feelings in her legs as well as leg pain during the night. She denies grinding her teeth during sleep and rarely awakens with morning jaw pain. She is constantly bothered by pain during the day but never awakened by pain during the night. She constantly wakes up feeling stiff in the morning. She frequently wakes up with sore or achy muscles. She constantly wakes up with pain in the neck, spine or other joints. She goes to bed at 10:00 p.m. on both weekdays and weekends. It takes her 1 hour to fall asleep. She wakes up at 5:30 a.m. on weekdays and between 630-7 a.m. on the weekends. She typically gets 6-7 hours of sleep per night. She does not stay in bed after waking up in the morning. She currently lives with her . She does not consume any caffeinated beverages within 2 hours of bedtime. She does not engage in physical exercise before bedtime. She will read and watch television before falling asleep. She will take naps in the afternoon or the evening but they are not refreshing. She drinks 1 cup of coffee per day. She denies tobacco, alcohol and recreational drug use. [facility] Past Medical History Medical History Acute CVA (cerebrovascular accident) Acute right-sided weakness delivery delivered 2 Chronic migraine CVA (cerebral vascular accident) Diabetes mellitus type 1, with complication, on [facility] insulin pump History of PCOS Major depression, recurrent, chronic Shingles Surgical History Surgical History History of appendectomy History of section, classical X2 History of cholecystectomy Family History Family History Grandparent Family history of malignant neoplasm of ovary Other Family history of cardiovascular disease Family history of hypercholesterolemia Social History Social History Social History: The patient has 3 children. She is and her is a durable power health care attorney for healthcare. 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
[2022-10-06 15:36] VITALS: BMI 31.9
--- NOTE | 2022-12-24 15:27 | SLEEP ---
new calls [phone]
== END 2022-10-02 09:45 | disposition home or self-care (01) ==
LOC: ANHCSM 08:28
PROVIDERS: PCP Family Medicine; Visit Provider Internal Medicine Cardiovascular Disease
DX: G47.33 Obstructive sleep apnea (adult) (pediatric) (principal); E11.9 Type 2 diabetes mellitus without complications; I10 Essential (primary) hypertension; Z86.73 Personal history of transient ischemic attack (TIA), and cerebral infarction without residual deficits
CPT/HCPCS: 95800

== ENCOUNTER 2022-12-24 08:13 | Outpatient (CLI) | payer OTHER, SELFPAY ==
--- NOTE | 2023-01-20 23:22 | WPDSLEEPSTUD ---
Sleep Study Date of Study: 12/24/22 Ordering Provider: Darian Stevens APRN Interpreting Physician: Tati Pugh MD Sleep Study Type: CPAP Titration Height: 1.73 m Weight: 103.873 kg Body Mass Index: 34.8 Neck Circumference (inches): 15.5 Delta: 4 Reason for Sleep Study Obstructive sleep apnea, presents for a CPAP titration * 10/01/2022 Home sleep test using WatchPat with an apnea hypopnea index of 37.6 with desaturation to 76% Sleep History Sondra López is a 57-year-old woman who had a home sleep test in September showing severe RAFITA. She has diabetes, migraine, depression, paroxysmal ventricular tachycardia, hypertension, dyslipidemia and history of stroke in September 2021. The patient denies awakening from sleep short of breath.? He constantly awakens at night with heartburn, belching or cough.? She occasionally snores but it is rarely loud enough that others complain.? She occasionally has trouble sleeping when she has a cold.? She denies waking up gasping for air throughout the night.? She denies having breathing problems at night observed by herself or others.? She frequently sweats excessively at night.? She denies having heart palpitations or irregular heartbeats during the night.? She occasionally falls asleep during the day.? She denies falling asleep while driving.? She denies sleep paralysis, cataplexy and hypnagogic / hypnopompic hallucinations.? She occasionally has trouble at school or work due to sleepiness.? She denies feeling afraid of going to sleep.? She occasionally has nightmares and constantly remembers her dreams.? She frequently has thoughts racing through her mind.? She rarely feels sad or depressed.? She frequently has anxiety.? She constantly has muscular tension.? She occasionally notices parts of her body jerk.? She denies kicking during the night.? She denies having crawling and aching feelings in her legs as well as leg pain during the night.? She denies grinding her teeth during sleep and rarely awakens with morning jaw pain.? She is constantly bothered by pain during the day but never awakened by pain during the night.? She constantly wakes up feeling stiff in the morning.? She frequently wakes up with sore or achy muscles.? She constantly wakes up with pain in the neck, spine or other joints.? She goes to bed at 10:00 p.m. on both weekdays and weekends.? It takes her 1 hour to fall asleep.? She wakes up at 5:30 a.m. on weekdays and between 630-7 a.m. on the weekends.? She typically gets 6-7 hours of sleep per night.? She does not stay in bed after waking up in the morning.? She currently lives with her .? She does not consume any caffeinated beverages within 2 hours of bedtime.? She does not engage in physical exercise before bedtime.? She will read and watch television before falling asleep.? She will take naps in the afternoon or the evening but they are not refreshing. Habits: No tobacco. Caffeine : one cup a day. No alcohol or recreational substances. PMFSH Past Medical History Medical History Acute CVA (cerebrovascular accident) Acute right-sided weakness delivery delivered 2 Chronic migraine CVA (cerebral vascular accident) Diabetes mellitus type 1, with complication, on retirement insulin pump History of PCOS Major depression, recurrent, chronic Shingles Surgical History Surgical History History of appendectomy History of section, classical X2 History of cholecystectomy Family History Family History Grandparent Family history of malignant neoplasm of ovary Other Family history of cardiovascular disease Family history of hypercholesterolemia Social History Social History Social History: The patient has 3 children. She is and her is
[2023-01-21 11:56] VITALS: BMI 34.8
== END 2022-12-25 05:29 | disposition home or self-care (01) ==
LOC: ANHCSM 08:14
PROVIDERS: PCP Family Medicine; Visit Provider Nurse Practitioner Family
DX: G47.33 Obstructive sleep apnea (adult) (pediatric) (principal); Z68.34 Body mass index [BMI] 34.0-34.9, adult
CPT/HCPCS: 95811